=== PATIENT | female | born 2000 | race Caucasian/White ===

== ENCOUNTER 2021-12-28 17:05 | Emergency (ER) | payer MEDICAID ==
[~2021-12-28] VITALS: Ht 175.3 cm; Wt 62.0 kg
[2021-12-28 17:19] VITALS: BP 124/75
[2021-12-28] MEDS ORDERED: IBUP-2029 MT (22:31)
== END 2021-12-28 22:34 ==
LOC: ER 17:05
DX: J02.9 Acute pharyngitis, unspecified (principal)
CPT/HCPCS: 99282; Z7610

== ENCOUNTER 2025-01-09 18:33 | Emergency (ER) | payer MEDICAID ==
[~2025-01-09] VITALS: Ht 154.9 cm; Wt 64.0 kg
[~2025-01-09 18:33] MED LIST: IBUP-1455 MT
[2025-01-09 18:57] VITALS: O2SAT 98
[2025-01-09 22:34] LABS: BASOPHILS % 0.6 % (0.0-2.0); EOSINOPHILS % 1.5 % (0.0-5.0); HEMATOCRIT. 42.4 % (36.0-48.0); HEMOGLOBIN. 14.5 g/dL (12.0-16.0); LYMPHOCYTES % 28.6 % (20.0-50.0); MEAN PLATELET VOLUME 9.1 fl (7.4-10.4); MONOCYTES % 8.6 % (2.0-8.0); NEUTROPHILS % 60.7 % (40.0-76.0); PLATELET 267 x1000/uL (130-400); RED BLOOD CELL COUNT 4.54 mill/uL (4.2-5.4); RED CELL DISTRIBUTION WIDTH 12.4 % (11.6-14.6)
[2025-01-09 22:40] LABS: CLARITY URINE CLEAR (CLEAR); COLOR URINE YELLOW (YELLOW); GLUCOSE URINE NEGATIVE (NEGATIVE); KETONES URINE 3+ (NEGATIVE); LEUKOCYTE ESTERASE URINE NEGATIVE (NEGATIVE); NITRITE URINE NEGATIVE (NEGATIVE); OCCULT BLOOD URINE 2+ (NEGATIVE); PH URINE 6.5 (4.5-8.0); PROTEIN URINE NEGATIVE (NEGATIVE); SPECIFIC GRAVITY URINE 1.018 (1.005-1.030); UROBILINOGEN URINE 0.2 E.U./dL (0.2-1.0)
[2025-01-09 22:46] LABS: CREATININE 0.6 mg/dL (0.6-1.0)
[2025-01-09 22:47] LABS: UREA NITROGEN BLOOD < 5 mg/dL (9-23)
[2025-01-09 22:48] LABS: ASPARTATE AMINOTRANSFERASE 19 IU/L (<34)
[2025-01-09 22:49] LABS: BILIRUBIN DIRECT 0.2 mg/dL (<=3.0); BILIRUBIN TOTAL 0.5 mg/dL (0.1-1.0); PROTEIN TOTAL 7.8 g/dL (6.0-8.3)
[2025-01-09 22:50] LABS: SQUAMOUS EPITHELIAL CELL URINE 2+ /lpf (RARE/1+)
[2025-01-09 22:51] LABS: BACTERIA URINE TRACE; RBC URINE 15-25 /hpf (0-2); WBC URINE 0-2 /hpf (0-2)
[2025-01-09] MEDS ORDERED: IMOD PO (23:12)
[2025-01-09] MEDS ORDERED: ACET-2708 MT (23:12)
[2025-01-09] MEDS: KETOROLAC 30MG/ML VIAL IM ONE (23:22)
[2025-01-09 23:24] VITALS: BP 109/70; PULSE 87; RESP 18; TEMP 37.3; O2SAT 98
== END 2025-01-09 23:31 | disposition home or self-care (01) ==
LOC: ER 18:33
DX: R10.9 Unspecified abdominal pain (principal); R19.7 Diarrhea, unspecified; Z79.899 Other long term (current) drug therapy
CPT/HCPCS: 99283; 80076; 80048; 81003; 81025; 83690; 85025; 36415; 96372; J1885